=== PATIENT | male | born 1950 | race Caucasian/White ===

== ENCOUNTER 2021-04-24 08:24 | Emergency (ER) | payer MEDICARE, OTHER | END 2021-04-24 09:53 | disposition home or self-care (01) | LOC: DL.ED 08:24 | DX: S46.911A Strain of unspecified muscle, fascia and tendon at shoulder and upper arm level, right arm, initial encounter (principal); S86.911A Strain of unspecified muscle(s) and tendon(s) at lower leg level, right leg, initial encounter; R07.89 Other chest pain; Z91.013 Allergy to seafood; W18.30XA Fall on same level, unspecified, initial encounter; Y93.01 Activity, walking, marching and hiking; Y92.89 Other specified places as the place of occurrence of the external cause | CPT/HCPCS: 71101-RT; 73030-RT; 73562-RT; 99283-25 ==

== ENCOUNTER 2022-04-29 09:23 | Emergency (ER) | payer MEDICARE, OTHER ==
[2022-04-29 10:54] LABS: ANION GAP 16.7 mEq/L (7-13); CHLORIDE,CL 104 mmol/L (98-107); SODIUM,NA 141 mmol/L (136-145)
[2022-04-29 10:59] LABS: ESTIMATED GFR 50 mL/min (>=60)
[2022-04-29] MEDS ORDERED: Furosemide 20 MG/2 ML VIAL IVPUSH ONE (11:38)
== END 2022-04-29 13:50 | disposition home or self-care (01) ==
LOC: DL.ED 09:23
DX: M99.53 Intervertebral disc stenosis of neural canal of lumbar region (principal); M51.36 Other intervertebral disc degeneration, lumbar region; M51.26 Other intervertebral disc displacement, lumbar region; I51.7 Cardiomegaly; R60.0 Localized edema; Z91.013 Allergy to seafood; Z79.82 Long term (current) use of aspirin; Z79.84 Long term (current) use of oral hypoglycemic drugs; Z79.899 Other long term (current) drug therapy
CPT/HCPCS: 36415; 71045; 72131; 80053; 82947; 83735; 83880; 84443; 85025; 86140; 96374; 99285; J1940